=== PATIENT | female | born 1970 | race Caucasian/White ===

== ENCOUNTER 2022-06-28 21:00 | Emergency (ER) | payer OTHER ==
[2022-06-28] MEDS ORDERED: CYCLOBENZAPRINE10 MG PO (22:42)
[2022-06-28] MEDS ORDERED: MEDROL 4MG DOSEP4 MG PO (22:42)
== END 2022-06-28 22:48 | disposition home or self-care (01) ==
LOC: FER 21:00
DX: M54.31 Sciatica, right side (principal); E11.9 Type 2 diabetes mellitus without complications; I10 Essential (primary) hypertension
CPT/HCPCS: 72131; 96372; J1100; J1885